=== PATIENT | female | born 1980 | race African-American/Black ===

== ENCOUNTER 2017-09-04 01:07 | Emergency (ER) | payer OTHER ==
[~2017-09-04] VITALS: Ht 162.6 cm; Wt 117.9 kg
[2017-09-04 03:49] VITALS: BP 128/80
== END 2017-09-04 03:49 | disposition home or self-care (01) ==
LOC: ED 01:07
DX: J04.0 Acute laryngitis (principal); Z88.2 Allergy status to sulfonamides; Z91.040 Latex allergy status
CPT/HCPCS: J1885; J7512; Q0092

== ENCOUNTER 2019-11-01 12:54 | Emergency (ER) | payer OTHER ==
[~2019-11-01] VITALS: Ht 172.7 cm; Wt 91.2 kg
[2019-11-01 13:15] VITALS: Ht 172.7 cm; Wt 91.2 kg
[2019-11-01 14:08] LABS: BASOPHIL % 0.4 % (0-2); RED CELL DISTRIBUTION WIDTH 14.5 % (11.5-14.5)
[2019-11-01 14:13] LABS: PLATELET COUNT 408 x10^3mcL (130-400)
[2019-11-01 14:46] LABS: ALBUMIN 3.6 g/dL (3.4-5.0); CARBON DIOXIDE 27.8 mmol/L (21-32); CHLORIDE SERUM 105 mmol/L (98-107); GFR1 > 60 mL/min; GLUCOSE SERUM 87 mg/dL (74-106); POTASSIUM SERUM 4.1 mmol/L (3.5-5.1); SODIUM SERUM 141 mmol/L (136-145); TOTAL PROTEIN, SERUM 7.6 g/dL (6.4-8.2)
[2019-11-01 14:47] LABS: ALKALINE PHOSPHATASE 60 U/L (46-116); ALT/SGPT 21 U/L (14-59); AST/SGOT 12 U/L (15-37); BILIRUBIN TOTAL 0.3 mg/dL (0.20-1.00); CALCIUM 9.2 mg/dL (8.5-10.1); LIPASE 113 IU/L (73-393)
[2019-11-01 15:49] VITALS: BP 99/64
== END 2019-11-01 15:49 | disposition home or self-care (01) ==
LOC: ED 12:54
PROVIDERS: Emergency Medicine
DX: R10.13 Epigastric pain (principal); Z98.84 Bariatric surgery status; Z98.890 Other specified postprocedural states; Z90.89 Acquired absence of other organs; Z88.2 Allergy status to sulfonamides; Z91.040 Latex allergy status
CPT/HCPCS: 36415; J1885; Q0162